=== PATIENT | female | born 2000 | race Caucasian/White ===

== ENCOUNTER 2021-03-10 10:14 | Inpatient (IN) | payer MEDICAID, SELFPAY ==
[2021-03-10] VITALS (83 sets, daily range): BP systolic 79–129; BP diastolic 46–70; PULSE 60–173; RESP 16–17; TEMP 35.3–36.8; O2SAT 97–100; BMI 25.9
[2021-03-10] MEDS: lactated ringers 1,000 ML 999 ML IV (09:45)
[2021-03-10 10:01] LABS: Basophils # 0.1 10^3/uL (0.0-0.1); Basophils % 0.3 %; Eosinophils # 0.1 10^3/uL (0.0-0.8); Eosinophils % 0.2 %; Hematocrit 35.3 % (37.0-47.0); Hemoglobin 11.6 g/dL (11.5-15.3); Lymphocytes # 1.5 10^3/uL (0.8-4.8); Mean Corpuscular HGB Conc 32.9 g/dL (30.0-36.0); Mean Corpuscular Hemoglobin 30.1 pg (28.0-34.0); Mean Corpuscular Volume 91.5 fl (81-99); Mean Platelet Volume 12.1 fL (7.4-10.4); Monocytes # 1.4 10^3/uL (0.2-0.9); Monocytes % 5.6 %; Neutrophils # 21.63 10^3/uL (1.8-7.7); Neutrophils % 86.7 %; Nucleated Red Blood Cells % 0 %; Platelet Count 147 10^3/cmm (130-400); Red Blood Count 3.86 10^6/uL (4.1-5.3); Red Cell Distribution Width 12.6 % (12.1-15.1)
[2021-03-10 11:56] LABS: Amphetamines Screen Urine Negative (Negative); Barbiturates Screen Urine Negative (Negative); Benzodiazepines Screen Urine Negative (Negative); Cocaine Screen Urine Negative (Negative); Opiate Screen Urine Negative (Negative); PCP Screen Urine Negative (Negative); THC Screen Urine Negative (Negative)
[2021-03-10 12:33] LABS: SARS Covid-2 Antigen Negative (Negative)
--- NOTE | 2021-03-10 12:44 | P.ANESASSM_ITS ---
Pre-Anesthetic Assessment Pre-Anesthetic Assessment: Height/Weight: Height 1.65 m Weight 70.76 kg Temp Pulse Resp BP Pulse Ox 95.9 F L 73 17 95/54 100 03/10/21 12:30 03/10/21 12:28 03/10/21 09:20 03/10/21 12:28 03/10/21 11:14 Was Beta Karen taken within 24 hours: N/A Was Clonidine taken within 24 hours: N/A Social: Social History: No alcohol and No tobacco Exam: Pre-Anes Outpt Exam: alert, oriented x 3, clear to auscultation bilaterally and regular rate & rhythm Airway: Submandibular: WNL Cervical ROM: WNL MP: 2 Dentition: Full History/ROS: No significant history except as noted Anesthetic Plan: ASA status: 2 Anesthesia: Regional (specify below) (Labor epidural) Risk of > 500 ml blood loss (7ml/kg in children): No Meds/Allergies Current Medications: Current Medications Generic Name Dose Route Start Last Admin Trade Name Freq PRN Reason Stop Dose Admin Lactated Ringer's 1,000 mls @ 999 m ls/hr 03/10/21 09:19 03/10/21 09:45 Lactated Ringers IV 999 mls/hr .Q1H1M PRN Administration See label comment s PFSH Anesthesia Female Reproductive History: : 3 Data Anesthesia CBC & Chem 7: 03/10/21 09:40 Other Labs: Laboratory Results - last 48 hr 03/10/21 03/10/21 03/10/21 09:30 09:40 11:55 WBC 25.0 H RBC 3.86 L Hgb 11.6 Hct 35.3 L MCV 91.5 MCH 30.1 MCHC 32.9 RDW 12.6 Plt Count 147 MPV 12.1 H Neut % (Auto) 86.7 Lymph % (Auto) 6.0 [place] % (Auto) 5.6 Eos % (Auto) 0.2 Baso % (Auto) 0.3 Neut # (Auto) 21.63 H Lymph # (Auto) 1.5 [place] # (Auto) 1.4 H Eos # (Auto) 0.1 Baso # (Auto) 0.1 Nucleated RBC % (auto) 0 Nucleated RBCs # 0.0 Urine Opiates Screen Negative Ur Barbiturates Screen Negative Ur Phencyclidine Scrn Negative Ur Amphetamines Screen Negative U Benzodiazepines Scrn Negative Urine Cocaine Screen Negative U Marijuana (THC) Screen Negative SARS-CoV-2 Ag (Rapid) Negative Cardiac Studies: No Data to Display
--- NOTE | 2021-03-10 12:45 | ANES.PROC ---
Anesthesia Procedures Procedure/Date: 03/10/21 Epidural: Time Out Performed: Yes Consents Signed: Procedure Consent Consent: requested by attending/covering physician, from patient, risks and benefits reviewed and patient agrees to proceed Lumbar Level: L3-L4 Epidural position: sitting Epidural procedure: sterile prep of area, 1% lidocaine to numb the area, 18 g needle, neg for paresthesia, 1.5% xylocaine 1:200k epi, placed PCEA, no systemic response, sterile dressing applied, L.U.D. no apparent complications and 0.2% Ropiavacaine @ mls/hr (13) Additional Comments: EDUARDO at 4cm, cath at 9cm, bolused 5mls of 2% lido
[2021-03-10] MEDS: ondansetron 2 mg/ML SDV 2 mL 4 MG IVP (13:23)
[2021-03-10] MEDS: dextrose 5%-lactated ringers 1,000 ML 125 ML IV (13:39)
--- NOTE | 2021-03-10 17:51 | PM.OPHPUD ---
Labor & Delivery H&P Update Date of Procedure: March 10, 2021 Date H&P Performed: 03/03/21 H&P update information: I have reviewed H&P completed within last 30 days Changes to previous documentation: Patient was in active labor on arrival and delivered prior to this note. Admission Diagnosis: Planned procedure: Operation Date: 03/11/21 16:50 Proposed Procedures p Bilateral Tubal Ligation(Bilateral) - Sergey Blanco MD
--- NOTE | 2021-03-10 17:53 | P.PCNOB_ITS ---
Delivery Note: Date of delivery: March 10, 2021 Patient began epifanio early the morning of delivery at 38 weeks and 4 days gestation. Upon arrival she was gerber. 7cm dilated and requested epidural anesthesia. That was accomplished and she dilated very slowly after that. She underwent artificial rupture of membranes around 1300 with moderate clear fluid obtained. She dilated to complete dilatation and delivered a viable male at 1509 in right occiput anterior position with suctioning of the mouth and nose at the perineum followed by delivery of the anterior shoulder then the posterior shoulder through an intact perineum. The infant was then placed on mothers abdomen where the infants father cut the umbilical after gerber one minute. The cried well and had great tone with 's of 9 and 9 at one and five minutes respectively. The placenta delivered spontaneously at 1517 and appeared to be intact. The umbilical cord had 3 vessels and cord blood was obtained as mother was O negative blood type. Her vaginal vault was swept with minimal clots and no actve bleeding and firm fundus. EBL was gerber 118ml. There was no episiotomy and no lacerations or repair. No complications. Pre-Delivery Course: This patient was followed by this physician throughout her with no complications. Mom had a blood type of O negative and did receive Rhogam at 28 weeks gestation. She did have Chlamydia during the that was treated in the patient and significant other but testing for clearance was not done. It was ordered in mom during the labor process. The remainder of lab work was normal including negative Group B testing. She discussed with this physician and Dr. Blanco her desire for tubal ligation and the proper forms were signed. Dr. Blanco has been consulted for tubal ligation. Delivery: Spontaneous Vaginal Delivery. Post-Delivery Status: Patient is doing well. Plan for tubal ligation and routine care. A&P Assessment and plan (1) Normal spontaneous vaginal delivery: plan tubal ligation and routine care. Status: Acute Coding Level of Care Code Acute [employer] Wms Consultant for Chg Fwd Diagnoses Normal spontaneous vaginal delivery O80
[2021-03-10] MEDS: benzocaine-menthol 78 gm Canister 1 SPRAY TOPICAL (18:38)
[2021-03-10] MEDS: docusate sodium 100 mg Capsule PO (18:38)
[2021-03-10] MEDS: ibuprofen 800 mg tablet PO (20:16)
[2021-03-11 03:47] LABS: Hematocrit 30.8 % (37.0-47.0); Hemoglobin 10.2 g/dL (11.5-15.3); Mean Corpuscular HGB Conc 33.1 g/dL (30.0-36.0); Mean Corpuscular Hemoglobin 30.6 pg (28.0-34.0); Mean Corpuscular Volume 92.5 fl (81-99); Mean Platelet Volume 11.7 fL (7.4-10.4); Platelet Count 155 10^3/cmm (130-400); Red Blood Count 3.33 10^6/uL (4.1-5.3); Red Cell Distribution Width 12.7 % (12.1-15.1); White Blood Count 27.6 10^3/uL (4.0-10.0)
[2021-03-11] MEDS: HYDROcodone-acetaminophen 5-325 mg Tablet PO (04:02)
--- NOTE | 2021-03-11 09:12 | PM.OBGYPN ---
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 She is ambulating well and tolerating a regular diet. Labor: Station: +1 Amniotic Membrane Status: Ruptured Monitor Mode: External Contraction Pattern: Regular Status: Category II Vitals/I&O/Wt Last Vital Signs Temp 98.3 F 03/10/21 21:20 Pulse 60 03/10/21 23:31 Resp 16 03/10/21 23:31 BP 85/46 03/10/21 23:31 Pulse Ox 100 03/10/21 11:14 03/10/21 03/11/21 03/11/21 22:59 06:59 14:59 Intake Total 964.583 / 1964.583 Output Total 300 / 300 Balance 664.583 / 1664.583 Weight last 48 hrs Weight 70.76 kg Physical Exam Const: COMMON NORMALS: no acute distress, healthy appearing, alert and well nourished Resp: COMMON NORMALS: normal respiratory effort, No use of accessory muscles and clear to auscultation bilaterally AUSCULTATION: clear to auscultation bilaterally Cardio: COMMON NORMALS: regular rate, regular rhythm and No murmurs present (Cardio) RATE: regular rate RHYTHM: regular rhythm GI: COMMON NORMALS: Normal to inspection, nondistended, normoactive bowel sounds present and Soft to palpation (Fundus is firm and well below the umbilicus.) PALPATION: Yes Soft to palpation (Fundus is firm and well below the umbilicus.) Extremity: COMMON NORMALS: normal to inspection, full ROM, no calf tenderness and no pedal edema Neuro: COMMON NORMALS: CN's II-XII intact bilaterally, moves all extremities, no focal motor deficits and no sensory deficits noted SENSORIUM/ORIENTATION: Yes alert Psych: COMMON NORMALS: mental status grossly normal, cooperative and normal affect Urinary Catheter Management^: Gna Latex: Cath Placed During This Visit: yes Urinary Catheter Date of Insertion: 03/10/21 Urinary Catheter Time of Insertion: 11:25 Data : 03/11/21 03:40 A&P Assessment and plan (1) Normal spontaneous vaginal delivery: Patient is doing well at this time. There is a plan for tubal ligation this evening and possibly home this evening or in the morning. Status: Acute Attestations Medical Necessity Statement*: Patient delivered a infant by spontaneous vaginal delivery yesterday afternoon and plans tubal ligation late this afternoon. She needs to stay today and possibly tonight depending on her response after her tubal ligation. Time Spent in Patient Care: less than 15 minutes Coding Level of Care Code Acute Meteorological Observer for Chg Fwd Diagnoses Normal spontaneous vaginal delivery O80
[2021-03-11] MEDS: ibuprofen 800 mg tablet PO ×2 (09:42→14:01)
[2021-03-11] MEDS: docusate sodium 100 mg Capsule PO (09:42)
[2021-03-11] MEDS: prenatal vitamin Capsule 1 CAP PO (09:42)
[2021-03-11 10:02] VITALS: BP 90/59; PULSE 60; RESP 18; TEMP 36.8
--- NOTE | 2021-03-11 12:22 | ANE.PACU2 ---
Inpatient post-anesthesia follow up: Airway intact: Yes Vital signs: Temperature 98.3 F Pulse Rate 60 Respiratory Rate 18 Blood Pressure 90/59 Pulse Oximetry 100 Oxygen Delivery Me thod Room Air Oxygen Flow Rate Fraction of Inspir ed Oxygen Hydration adequate: Yes Nausea and vomiting: No Pain level: 2 Mental status: Baseline
[2021-03-11 14:51] LABS: Coronavirus Test Green County Not Detected
--- NOTE | 2021-03-11 15:51 | P.DS_ITS ---
Discharge Providers CRITICAL CARE PHYSICIAN ASSISTANT Date of Admission: 03/10/21 10:14 Date of Discharge: 03/11/21 Attending Provider at Admission: Christiano Fang MD Attending Provider at Discharge: Christiano Fang MD Primary Care Provider: JASPAL Fierro Diagnoses at Discharge Discharge Diagnosis (1) Normal spontaneous vaginal delivery: Status: Acute Reason for Visit Reason for Visit: contractions Hospital Course Hospital Course Patient was admitted yesterday morning in active labor and she delivered by a healthy, viable male . SHe has done well post delivery with minimal lochia and no significant clots. She is ambulating well and tolerating a regular diet. She was scheduled for tubal ligation but she cancelled that and will look into long range contraception for now. Information Peripartum Data: Delivery Method: Vaginal Physical Exam Narrative: EXAM NARRATIVE: She is doing well, see exam note from this morning. Urinary Catheter Management^: Gan Latex: Cath Placed During This Visit: yes Urinary Catheter Date of Insertion: 03/10/21 Urinary Catheter Time of Insertion: 11:25 Discharge Data Data Completed and Pending: Labs from last 24 hours 03/11/21 03/11/21 03/10/21 03:40 03:40 16:25 WBC 27.6 H RBC 3.33 L Hgb 10.2 L Hct 30.8 L MCV 92.5 MCH 30.6 MCHC 33.1 RDW 12.7 Plt Count 155 MPV 11.7 H Nasal/Oral COVID-1 9 PCR Blood Type O Negative Rho(D) Type Negative Antibody Screen Positive Antibody Identific ation Anti-D Screen Negative 03/10/21 11:55 WBC RBC Hgb Hct MCV MCH MCHC RDW Plt Count MPV Nasal/Oral COVID-1 9 PCR Not detected Blood Type Rho(D) Type Antibody Screen Antibody Identific ation Screen Vitals: Last Vital Signs Temp 98.3 F 03/11/21 10:02 Pulse 60 03/11/21 10:02 Resp 18 03/11/21 10:02 BP 90/59 03/11/21 10:02 Pulse Ox 100 03/10/21 11:14 Discharge Plan Discharge Patient Disposition: Home Condition: Stable Prescriptions: New docusate sodium 100 mg Capsule 100 mg PO BID Qty: 60 RF: 1 ibuprofen 800 mg Tablet 800 mg PO TID Qty: 90 RF: 1 Discharge Orders: Discharge Order (Routine); Ordered 03/11/21 Ordered By: Christiano Fang Referrals: Christiano Fang MD [Physician] - 6 Weeks Discharge Diet: Usual diet Discharge Activity: Resume usual activity Patient Instructions: Opioid Safety Discharge Attestations CRITICAL CARE PHYSICIAN ASSISTANT Time Spent in Discharge Care*: less than 30 min Specific Discharge Activities: Specific discharge activities: educating patient, documenting/other paperwork and evaluating patient/reviewing data Coding Level of Care Code Acute Director Operating for Chg Fwd Diagnoses Normal spontaneous vaginal delivery O80
[2021-03-11 16:40] VITALS: BP 92/60; PULSE 61; RESP 16; TEMP 36.6; O2SAT 100
[2021-03-11] MEDS: azithromycin 250 mg Tablet 1000 MG PO (17:18)
== END 2021-03-11 17:43 | disposition home or self-care (01) | DRG 807 ==
LOC: OPOB 10:15 → OBGYN 10:15
PROVIDERS: Admitting Provider Family Medicine; PCP Nurse Practitioner; Visit Provider Family Medicine
DX: O80 Encounter for full-term uncomplicated delivery (principal); Z37.0 Single live birth; Z3A.38 38 weeks gestation of pregnancy
CPT/HCPCS: 36415; 51702; 59025; 59409; 80306; 80500; 85025; 85027; 85460; 86850; 86870; 86900; 87426; 87491; 87591; 87635; 90384; 96374; 99211; J2405; Q0144

== ENCOUNTER → 2022-03-25 12:06 | Outpatient (BNVA) | payer MEDICAID, SELFPAY | PROVIDERS: PCP Nurse Practitioner; Visit Provider Nurse Practitioner Family | DX: N89.8 Other specified noninflammatory disorders of vagina (principal) | CPT/HCPCS: 81000; 87070; 87205; 87491; 87591; 87661 ==